=== PATIENT | male | born 1995 | race Two or more races ===

== ENCOUNTER 2018-02-27 14:12 | Outpatient (CLI) | payer OTHER ==
[~2018-02-27 14:12] MED LIST: AMOX1TAB12 PO; CATAFLAM50 MG PO; DECADRON P4 MG/ML-1M IH; DICLOFENAC POTA50 MG PO; FLEXERIL 10 MG PO; FLONASE16 GM NS; GILTUSS TR TAB1 EACH PO; OSEL75CA PO; TORADOL30 MG IM; TORADOL60 MG IM; VOLTAREM 75 MG PO; ZANTAC300 MG PO; ZITHROMAX TRI-500 MG PO; ZITHROMAX200 MG PO; ZYRTEC10 MG PO
== END 2018-02-27 14:20 | disposition home or self-care (01) ==
LOC: RAD 14:12
DX: M54.2 Cervicalgia (principal)

== ENCOUNTER 2018-06-19 11:42 | Outpatient (CLI) | payer OTHER | END 2018-06-19 11:49 | disposition home or self-care (01) | LOC: LAB 11:42 | DX: J11.1 Influenza due to unidentified influenza virus with other respiratory manifestations (principal) ==

== ENCOUNTER 2018-08-29 14:20 | Outpatient (CLI) | payer OTHER | END 2018-08-29 14:25 | disposition home or self-care (01) | LOC: RAD 14:20 | DX: J32.8 Other chronic sinusitis (principal); J31.0 Chronic rhinitis ==

== ENCOUNTER 2018-09-20 10:56 | Outpatient (CLI) | payer OTHER ==
[~2018-09-20] VITALS: Ht 167.6 cm; Wt 90.7 kg
== END 2018-09-20 11:15 | disposition home or self-care (01) ==
LOC: OFIC 805 10:56
DX: G50.1 Atypical facial pain (principal); R09.81 Nasal congestion; J32.8 Other chronic sinusitis; J30.89 Other allergic rhinitis

== ENCOUNTER → 2019-01-14 | Emergency (ER) | payer OTHER ==
[~2019-01-14] VITALS: Ht 167.6 cm; Wt 90.7 kg
[~2019-01-14] MED LIST changes: +SINGULAIR10 MG
== END | disposition home or self-care (01) ==
LOC: ER
DX: S50.312A Abrasion of left elbow, initial encounter (principal); S60.312A Abrasion of left thumb, initial encounter; Y04.0XXA Assault by unarmed brawl or fight, initial encounter; Y93.89 Activity, other specified; Y92.89 Other specified places as the place of occurrence of the external cause; Y99.8 Other external cause status

== ENCOUNTER 2022-10-13 13:59 | Emergency (ER) | payer OTHER ==
[~2022-10-13] VITALS: Ht 167.6 cm; Wt 104.3 kg
[2022-10-13] MEDS ORDERED: ALLEGRA-D 24 H1 EACH (14:13)
[2022-10-13] MEDS ORDERED: KETO10TA2 PO (18:02)
== END 2022-10-13 18:21 | disposition home or self-care (01) ==
LOC: ER 13:59
DX: S52.202A Unspecified fracture of shaft of left ulna, initial encounter for closed fracture (principal); W18.39XA Other fall on same level, initial encounter; Y93.E8 Activity, other personal hygiene; Y92.012 Bathroom of single-family (private) house as the place of occurrence of the external cause; Y99.9 Unspecified external cause status